=== PATIENT | male | born 1985 | race Caucasian/White ===

== ENCOUNTER 2021-09-19 22:48 | Observation (INO) ==
[2021-09-19] MEDS ORDERED: Isovue-370 500 ML BOTTLE IVP ONE (22:49)
[2021-09-19 23:19] LABS: Hematocrit 41.4 % (37.5-50.1); Hemoglobin 14.4 g/dL (12.9-16.9); Immature Platelets 7.6 % (1.1-6.1); Mean Corpuscular HGB Conc 34.8 g/dL (31.6-35.5); Mean Corpuscular Hemoglobin 34.4 pg (28.0-33.3); Mean Platelet Volume 11.2 fL (9.4-12.4); Red Blood Count 4.18 M/mcL (4.19-5.50); Red Cell Distribution Width 11.9 % (11.5-14.5); White Blood Count 7.2 K/mcL (4.3-11.1)
[2021-09-19 23:22] LABS: Prothrombin Time 11.4 Seconds (9.4-12.1)
[2021-09-19 23:25] LABS: Activated Partial Thrombo Time 26.7 Seconds (26.0-36.0)
[2021-09-19 23:39] LABS: Troponin I < 0.03 ng/mL (< 0.04)
[2021-09-19 23:48] LABS: BUN/Creatinine Ratio 14 (6-26); Blood Urea Nitrogen 11 mg/dL (6-20); Calcium 9.3 mg/dL (8.6-10.3); Carbon Dioxide 22 mEq/L (23-29); Chloride 104 mEq/L (98-107); Creatine Kinase 144 Units/L (30-223); Ethanol 128 mg/dL (Less than 10); Glucose 116 mg/dL (70-105); Osmolality,Calculated 286 (280-300); Potassium 3.7 mEq/L (3.5-5.1); Sodium 138 mEq/L (136-145); eGFR For African Americans > 60 (> 60); eGFR For Non-African Americans > 60 (> 60)
[2021-09-19 23:56] LABS: Bilirubin,Urine Negative (Negative); Blood,Urine Negative (Negative); Clarity,Urine Clear (Clear); Color,Urine Colorless (Yellow); Glucose,Urine (UA) Normal (Normal); Ketones,Urine Negative (Negative); Leukocyte Esterase,Urine Negative (Negative); Nitrite,Urine Negative (Negative); PH,Urine 6.5 pH Units (5.0-8.0); Protein,Urine Negative (Neg-Trace); Specific Gravity,Urine 1.009 (1.010-1.025); Urobilinogen,Urine Normal (Normal)
[2021-09-20 00:04] LABS: Amphetamine Screen,Urine Negative ng/mL (Cutoff=1000); Barbiturate Screen,Urine Negative ng/mL (Cutoff=200); Benzodiazepines Screen,Urine Negative ng/mL (Cutoff=200); Cannabinoid Screen,Urine Negative ng/mL (Cutoff = 50); Cocaine Screen,Urine Negative ng/mL (Cutoff= 300); Opiate Screen,Urine Negative ng/mL (Cutoff=300); Phencyclidine Screen,Urine Negative ng/mL (Cutoff=25)
[2021-09-20 00:40] LABS: Alanine Aminotransferase 128 Units/L (7-52); Albumin 4.2 g/dL (3.5-5.7); Albumin/Globulin Ratio 1.1 (1.1-2.2); Alkaline Phosphatase 137 Units/L (34-104); Aspartate Amino Transferase 187 Units/L (13-39); Bilirubin,Direct 0.2 mg/dL (0.0-0.2); Bilirubin,Indirect 0.5 mg/dL (0.0-1.0); Bilirubin,Total 0.7 mg/dL (0.3-1.0); Total Protein 8.2 g/dL (6.4-8.9)
[2021-09-20] MEDS ORDERED: Naloxone 0.4 MG/ML INJ IVP PRN (02:30)
[2021-09-20] MEDS ORDERED: Ondansetron 4 MG/2 ML VIAL IVP PRN (02:30)
[2021-09-20] MEDS ORDERED: *HR* LORazepam 2 MG/ML VIAL IVP PRN ×3 (03:31→10:28)
[2021-09-20] MEDS ORDERED: Perflutren Lipid Microsphere 1.3 ML in 0.9 % Sodium Chloride 8.7 ML IVP PRN (03:34)
[2021-09-20 03:43] LABS: Alanine Aminotransferase 126 Units/L (7-52); Albumin 3.9 g/dL (3.5-5.7); Albumin/Globulin Ratio 1.1 (1.1-2.2); Alkaline Phosphatase 127 Units/L (34-104); Aspartate Amino Transferase 187 Units/L (13-39); BUN/Creatinine Ratio 15 (6-26); Bilirubin,Total 0.7 mg/dL (0.3-1.0); Blood Urea Nitrogen 11 mg/dL (6-20); Carbon Dioxide 22 mEq/L (23-29); Chloride 104 mEq/L (98-107); Chol/HDL Ratio 4.6 (0-4.9); Cholesterol 147 mg/dL (< 200); Ethanol 43 mg/dL (Less than 10); Globulin 3.7 g/dL (2.4-3.5); Glucose 94 mg/dL (70-105); HDL Cholesterol 32 mg/dL (40-59); LDL Cholesterol,Calculated 62 mg/dL (< 100); Osmolality,Calculated 285 (280-300); Potassium 3.5 mEq/L (3.5-5.1); Sodium 138 mEq/L (136-145); Total Protein 7.6 g/dL (6.4-8.9); Triglycerides 264 mg/dL (< 150); eGFR For African Americans > 60 (> 60); eGFR For Non-African Americans > 60 (> 60)
[2021-09-20 03:56] LABS: Thyroid Stimulating Hormone 3.585 mcIU/mL (0.340-5.600)
[2021-09-20] MEDS ORDERED: Aspirin 325 MG TABLET PO ONE (04:00)
[2021-09-20 04:07] LABS: Vitamin B12 336 pg/mL (250-1100)
[2021-09-20 06:23] LABS: Hepatitis B Surface Antigen Nonreactive (Nonreactive)
[2021-09-20 06:54] LABS: Hepatitis B Core IgM Nonreactive (Nonreactive)
[2021-09-20 06:55] LABS: Hepatitis A Antibody IgM Nonreactive (Nonreactive)
[2021-09-20] MEDS ORDERED: Ibuprofen 400 MG TABLET PO ONE (08:55)
[2021-09-20] MEDS ORDERED: Folic Acid 1 MG TABLET PO SCH (09:00)
[2021-09-20] MEDS ORDERED: Thiamine (B-1) 100 MG TABLET PO SCH (09:00)
[2021-09-20 09:48] LABS: Hepatitis C Virus Antibody Reactive (Nonreactive)
[2021-09-20] MEDS ORDERED: Loratadine 10 MG TABLET PO SCH (10:30)
[2021-09-20 11:13] LABS: Estimated Average Glucose 103 mg/dl; Hemoglobin A1C 5.2 %
[2021-09-20 15:25] VITALS: BP 174/112; PULSE 89; TEMP 98.3; O2SAT 98
== END 2021-09-20 18:51 | disposition home or self-care (01) ==
LOC: EMEROOARM 22:48 → 3ANU 22:48 → SUATTDRO 09-20 02:13 → 3ANU 09-20 02:36
PROVIDERS: ADMIT Student in an Organized Health Care Education/Training Program; ATTEND Family Medicine